=== PATIENT | male | born 1985 | race Two or more races ===

== ENCOUNTER 2024-07-02 21:41 | Emergency (ER) | payer BC, SELFPAY ==
[2024-07-02 21:42] VITALS: BMI 39.0
[2024-07-02 22:06] VITALS: BP 143/97; PULSE 64; RESP 18; TEMP 36.8; O2SAT 99
--- NOTE | 2024-07-02 22:11 | XR_ITS ---
Examination: CT pelvis without intravenous contrast. 2-D sagittal and coronal reconstructions. Date and time of exam:July 02, 2024 1119 hrs. Indications: Patient fell today with injury to the pelvis, pelvic pain CTDI: vol (mGy) :16.51 DLP: (mGycm) : 721 Technique: Multiple 3 mm axial sections of the pelvis have been obtained with the 64 slice high resolution scanner. 2-D sagittal and coronal reconstructions. Low dose protocols were performed. One or more of the following dose reduction techniques were used; automated exposure control, adjustment of the mA and/or KV according to patient size, use of iterative reconstruction technique. Findings: No right or left hip fracture or dislocation Anterior rami acetabular regions iliac bones appear intact Soft tissue hematoma posterior to the left sacroiliac joint, 4.8 x 7.2 cm with soft tissue contusion midline posterior pelvis and left buttock region Urinary bladder intact Impression: No hip or pelvic fracture 4.8 x 7.2 cm hematoma in soft tissue posterior to the left sacroiliac joint with soft tissue contusion midline posterior pelvis and left buttock region
[2024-07-02] MEDS: HYDROcodone/APAP 5/325 TABLET 1 TAB PO (22:21)
--- NOTE | 2024-07-02 22:31 | EDNOTE_ITS ---
ED Back Injury Pain RME/HPI General Chief Complaint: Extremity Injury, Lower Stated Complaint: LOWER BACK PAIN/BRUISING S/P FALL Time Seen by Provider: 07/02/24 22:11 Arrival date/time: 07/02/24 21:41 39M with history of HTN and BPH presents to ED with L lower back/buttock pain/bruising after he fell after riding a mechanical bull yesterday. Patient denies paresthesia and bowel/bladder incontinence. Limitations: no limitations Related Data Home Medications ?Medication ?Instructions ?Recorded ?Confirmed amlodipine 10 mg tablet 10 mg PO QDAY ##0 09/28/13 11/21/20 hydrochlorothiazide 12.5 mg tablet 12.5 mg PO QDAY 11/21/20 11/21/20 metoprolol succinate 25 mg 25 mg PO QDAY 11/21/20 11/21/20 tablet,extended release 24 hr Previous Rx's ?Medication ?Instructions ?Recorded sulfamethoxazole 800 1 tab PO BID #14 tabs 11/26/20 mg-trimethoprim 160 mg tablet (Bactrim DS) Allergies Allergy/AdvReac Type Severity Reaction Status Date / Time benazepril Allergy lip Verified 11/21/20 04:58 swelling Review of Systems Review of Systems Systems Reviewed: All systems reviewed, normal except as documented Constitutional Constitutional: Reports system reviewed and no additional complaints, except as documented, Denies fever(s) and Denies headache(s) ENT Ears, Nose, Mouth, and Throat: Denies disequilibrium and Denies headache(s) Cardiovascular Cardiovascular: Reports system reviewed and no additional complaints, except as documented, Denies chest pain and Denies dyspnea Respiratory Respiratory: Reports system reviewed and no additional complaints, except as documented, Denies cough and Denies dyspnea Gastrointestinal Gastrointestinal: Reports system reviewed and no additional complaints, except as documented, Denies abdominal pain, Denies nausea and Denies vomiting Musculoskeletal Musculoskeletal: Reports as per HPI and Reports back pain Neurologic Neurologic: Reports system reviewed and no additional complaints, except as documented, Denies confusion, Denies disequilibrium and Denies headache(s) Psychiatric Psychiatric: Denies confusion Past Medical History Past Medical History NEUROLOGIC: Negative Neurological Disorders, Cerebrovascular Accident, Transient Ischemic Attacks (TIA), Dementia, Alzheimer's Disease, Parkinson's Disease, Brain Tumor, Meningitis, Seizures, Epilepsy, Multiple Sclerosis, Cerebral Palsy, Amyotrophic Lateral Sclerosis (ALS/Kacy Gehrig's), Guillain-[place] Syndrome, Spina Bifida, Paralysis, Peripheral Neuropathy, Mathew's Palsy, Subdural Hematoma, Migraine, Head Trauma, Spinal Cord Injury or Traumatic Brain Injury CARDIAC: Positive Cardiac Disorders, Edema (left leg edema 2 years ago, leg was brown) and Hypertension; Negative Myocardial Infarction, Cardiac Arrhythmia, Atrial Fibrillation, Angina, Heart Murmur, Coronary Artery Disease, Atherosclerotic Heart Disease, Peripheral Vascular Disease, Hypercholesterolemia, Aneurysm, Congestive Heart Failure, Congenital Heart Disease, Valvular Heart Disease, Rheumatic Fever, Cardiomyopathy, Pericarditis, Cellulitis, Deep Vein Thrombosis, Hypotension or Varicose Veins RESPIRATORY: Positive Sleep Apnea (uses machine at home); Negative Chronic Obstructive Pulmonary Disease (COPD), Asthma, Bronchitis, Emphysema, Pneumonia, Pulmonary Fibrosis, Cystic Fibrosis, Tuberculosis, Pulmonary Embolism or Pulmonary Edema GASTROINTESTINAL: Positive Gastrointestinal Disorders, Gall Bladder Disease (removed 2019) and Obesity (weight loss surgery 11/24/2018); Negative Hepatitis, Cirrhosis, Pancreatitis, Celiac Disease, Gastrointestinal Bleed, Esophageal Varices, Dawson's Esophagus, Colitis, Ulcerative Colitis, Diverticulitis, Diverticulosis, Ulcer, Colorectal Cancer, Irritable Bowel, Crohn's Disease, Obstructive Bowel, Hiatal Hernia, Hemorrhoids or Gastroesophageal Reflux Disease GENITOURINARY: Negative Genitourinary Disorders, Renal Disease, Kidney Stones, Polycystic Kidney Disease, Neurogenic Bladder, Inguinal Hernia, Dialysis, Prostate Cancer or Benign Prostatic Hyperplasia REPRODUCTIVE: Negative Breast Cancer, Genital Herpes, Gonorrhea, Syphilis or Testicular Cancer MUSCULOSKELETAL: Negative Musculoskeletal Disorders, Muscular Dystrophy, Myasthenia Gravis, Marfan's Syndrome, Bone Cancer, Arthritis, Rheumatoid Ar thritis, Osteoporosis, Degenerative Disk Disease, Gout, Scoliosis, Carpal Tunnel Syndrome, Fibromyalgia, Fractures, Degenerative Joint Disease, Osteomyelitis or Poliovirus ENT: Negative Cataracts, Glaucoma, Blind, Retinal Detachment, Macular Degeneration, Ear Infection, Deafness, Head Trauma or Eye Prosthesis ENDOCRINE: Negative Endocrine Disorders, Diabetes Mellitus Type 1, Diabetes Mellitus Type 2, Hypoglycemia, [place]'s Syndrome, [place]'s Disease, Hyperthyroidism, Hypothyroidism, Parathyroid Disease, Pituitary Disease, Systemic Lupus Erythematosus, Syndrome of Inappropriate Antidiuretic Hormone (SIADH), Adrenal Disease or Graves' Disease HEMATOLOGIC: Negative Blood Disorders, Anemia, Leukemia, Hemophilia, Thalassemia, Sickle Cell Disease or Clotting Problems PSYCHO/SOCIAL: Negative Psychiatric Problems, Schizophrenia, Recreational Drug Use, Bipolar Disorder, Depression, Anxiety, Behavior Problems, Self-Mutilation, Attention Deficit Disorder, Attention Deficit Hyperactivity Disorder, Depression, Post Traumatic Stress Disorder or Eating Disorder OTHER HISTORY: Positive Hospitalization and Chicken Pox; Negative Autoimmune Disease, Down Syndrome, Autism, Developmental Delay, Shingles, Falls, Blood Transfusions, Blood Transfusion Reaction, Anesthesia Reactions, Organ Transplant, Chemotherapy, Radiation Therapy, Hyperbaric Therapy, MRSA, VRSA, Vancomycin-Resistant Enterococci, Human Immunodeficiency Virus (HIV), Measles, Mumps, Rubella ([place]ian Measles), Pertussis, Clostridium Difficile, Cancer, Breast Cancer, Colorectal Cancer, Lung Cancer, Prostate Cancer or Testicular Cancer Family History FAMILY HISTORY: Positive Family Cancer (mom skin cancerous mole removed) and Family Surgery; Negative Family Psychiatric Problems, Family Respiratory Disorders, Family Cardiac Disorders, Family Gastrointestinal Problems or Family Anesthesia Reaction Surgical History SURGICAL: Positive Nose Surgery (2018), Throat Surgery, Abdominal Surgery, Gastric Bypass Surgery and Vasectomy; Negative Cardiac Surgery, Open Heart Surgery, Coronary Artery Bypass Graft, Valve Replacement, Vascular Surgery, Coronary Stent, Cardiac Catheterization, Pacemaker, Angiogram, Auto Implanted Cardiovert Defib, Carotid Endarterectomy, Endocrine Surgery, Thyroidectomy, Ear Surgery, Tympanostomy Tube, Eye Surgery, Tonsillectomy, Adenoidectomy, Cochlear Implant, Corneal Transplant, Tracheostomy, Nephrectomy, Transurethral Resection, Joint Replacement, Amputation, Open Reduction Internal Fixation, Arthroscopy, Neurologic Surgery, Brain Shunt or Organ Transplant Social History SMOKING STATUS: Never smoker ED Exam General Limitations: Present no limitations General appearance: Present alert and in no apparent distress Head Head exam: Present atraumatic Eye Eye exam: Present normal appearance, PERRL and EOMI ENT ENT exam: Present normal exam, normal oropharynx and mucous membranes moist Neck Neck exam: Present normal inspection, full ROM and trachea midline Chest Chest inspection: Present normal inspection and symmetric chest wall rise Respiratory Respiratory exam: Present normal lung sounds bilaterally Cardiovascular Cardiovascular exam: Present regular rate, normal rhythm and normal heart sounds Abdominal Exam Abdominal exam: Present soft and normal bowel sounds Extremities Exam Extremities exam: Present normal inspection and full ROM Back Exam Back exam: Present full ROM and other (L buttock bruising) Neurological Exam Neurological exam: Present alert, oriented X3 and CN II-XII intact Psychiatric Psychiatric exam: Present normal affect and normal mood Skin Skin exam: Present warm, dry, intact and normal color Course Quality Measures none Orders Category Date Time Status CT pelvis wo con Stat Exams 07/02/24 22:11 Completed HYDROcodone*/APAP 5/325 [[place] 5/325] Med 07/02/24 22:12 Discontinued 1 tab PO X1 ONE Vital Signs Vital signs: Vital Signs Temperature 98.2 F 07/02/24 22:06 Pulse Rate 64 07/02/24 22:06 Respiratory Rate 18 07/02/24 22:06 Blood Pressure 143/97 H 07/02/24 22:06 Pulse Oximetry (%) 99 07/02/24 22:06 Oxygen Delivery Method Room Air 07/02/24 22:06 O2 at 99% on RA and WNLs Back Pain / Injury MDM Narrative MDM Narrative:: 39M with history of HTN and BPH presents to ED with L lower back/buttock pain/bruising after he fell after riding a mechanical bull yesterday. Patient denies paresthesia and bowel/bladder incontinence. Physical exam with cable tool operator reveals significant bruising on L buttock area. No midline back tenderness. ROM and gait intact. Patient is afebrile, calm, and alert. CT soft tissue hematoma/contusion. Patient data External records reviewed:: [facility] previous records Clinical information provided by:: patient Social determinants that could affect healthcare access:: none Patient has the following chronic illnesses:: HTN How is presenting disease/condition affected by chronic disease/condition?: no chronic disease Evaluation data The following diagnostics were reviewed and interpreted by me:: radiology exam(s) Lab and/or radiology exams considered but not ordered:: ordered Interpretation Summary: above Medications / Prescriptions Medications or Prescriptions considered but not ordered:: ordered Medication administrations:: Medication Administration History Discontinued Medications Hydrocodone Bitart/Acetaminophen (Hydrocodone/[place] 5/325 Tablet) 1 tab PO X1 ONE Stop: 07/02/24 22:13 Last Admin: 07/02/24 22:21 Dose: 1 tab Documented By: SF above Consultations Consultation(s) initiated? (list below): No Diagnosis Differential diagnosis back pain/injury: lumbar radiculopathy, sciatica, strain of lumbar region, renal colic, pyelonephritis, thoracic back pain, AAA, discitis and other (hematoma and contusion) Most likely diagnosis given after review of the tests above:: hematoma and contusion Admission Indicated Admission indicated?: not indicated Admission Request Was there a request for admission?: No Disposition Plan Disposition Plan: Discharge Discharge Attestation Discharge Attestation: The patient and all family members were given an opportunity to ask questions and understood the discharge instructions. Discharge instructions specifically effects, indications for sooner follow up or return to the emergency department, and the expected course of current diagnosis. Patient condition: Stable Discharge Plan Plan Patient Disposition: HOME (Self Care) Disposition Comment: Stable Prescriptions/Referrals Prescriptions/Med Rec: No Action amlodipine 10 mg Tablet 10 mg PO QDAY Qty: 0 metoprolol succinate 25 mg Tablet Extended Release 24 Hr 25 mg PO QDAY hydrochlorothiazide 12.5 mg Tablet 12.5 mg PO QDAY sulfamethoxazole-trimethoprim [Bactrim DS] 800-160 mg tablet 1 tab PO BID Qty: 14 0RF Referrals: Janessa Leung NP [Primary Care Provider] - In 1 week Problem List Clinical Impression: Hematoma and contusion Patient/Caregiver Discharge Instructions Additional Instructions: Please follow-up with PCP within 24-48 hours and return immediately if symptoms worsen. If problem persists, recommend outpatient PT and/or MRI follow-up. In the meantime, rest, use ice/heat, and/or compression. Print Language: Macedonian Stand Alone Forms: Work/School Release, Patient Portal Info Letter PA/RAD TECHNOLOGIST Supervising Physician PA/JATINDER Supervising Physician: Dr. Payan
== END 2024-07-03 00:08 | disposition home or self-care (01) ==
PROVIDERS: Emergency Provider Emergency Medicine; PCP Nurse Practitioner Family
DX: S30.0XXA Contusion of lower back and pelvis, initial encounter (principal); W17.89XA Other fall from one level to another, initial encounter; Y93.I9 Activity, other involving external motion
CPT/HCPCS: 72192; 99284; A9270

== ENCOUNTER → 2024-10-19 | Outpatient (CLI) | payer BC, SELFPAY ==
--- NOTE | 2024-10-19 12:50 | XR_ITS ---
Examination: Testicular sonography complete Technique: Grayscale sonographic images testes, assessment arterial inflow venous flow Doppler spectral analysis carful analysis Exam date and time: October 20, 2019 5:00 PM Indications: Bilateral testicular pain beginning 3 weeks ago, lump on the right testicle noted beginning one week ago Findings: Right testis 5.3 cm epididymis 11 mm Arterial flow testicle. No testicular mass Mild hydrocele Left testis 4.4 cm epididymis 0.9 cm 3 mm epididymal cyst Arterial flow testicle. No testicular mass Mild hydrocele Impression: No testicular torsion or testicular mass
== END | disposition home or self-care (01) ==
LOC: CDIM 12:38
DX: N50.82 Scrotal pain (principal)
CPT/HCPCS: 76870